=== PATIENT | female | born 1965 | race African-American/Black ===

== ENCOUNTER 2019-11-25 10:51 | Emergency (ER) | payer OTHER ==
[2019-11-25 11:00] VITALS: BP 164/91
[2019-11-25] MEDS ORDERED: TETANUS,DIPH,PERTUSS(ACELL) VACCINE 0.5 ML SYRINGE IM ONE (11:14)
--- NOTE | 2019-11-25 11:14 | Event Note ---
ED Screening Note ED Screening Note: fell out of the shower due to it being wet last night headache had small amount of bleeding no LOC no vomiting no vision changes no numbness or weakness unsure of last tetanus immunization This initial assessment/diagnostic orders/clinical plan/treatment(s) is/are subject to change based on patients health status, clinical progression and re- assessment by fellow clinical providers in the ED. Further treatment and workup at subsequent clinical providers discretion. Patient/guardian urged not to elope from the ED as their condition may be serious if not clinically assessed and managed. Initial orders include: CT head, XR neck
[2019-11-25] MEDS ORDERED: SODIUM CHLORIDE 0.9% IRR 1,000 ML BOTTLE IR ONE (12:24)
[2019-11-25] MEDS ORDERED: HYDROcodone/ACETAMINOPHEN 10-325MG TAB PO ONE (12:24)
[2019-11-25] MEDS ORDERED: SODIUM CHLORIDE IRRI 500 ML 1,000 ML IR ONE (12:29)
--- NOTE | 2019-11-25 12:50 | XRay Report ---
CERVICAL SPINE, 3 VIEWS INDICATION / CLINICAL INFORMATION: fall, hit head, neck pain. COMPARISON: None available. FINDINGS: Vertebral body heights are maintained. Alignment is normal. There is mild to moderate degenerative di sc disease involving C5-C6 and C6-C7. I do not see any evidence for cervical spine fracture. No soft tissue abnormality. Visualized lung apices are clear. IMPRESSION: Mild multilevel degenerative disc disease. No visible fracture or traumatic malalignment. Signer Name: Corrine Urbina MD Signed: 11/25/2019 12:46 PM Workstation Name: [id number]
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
--- NOTE | 2019-11-25 13:14 | Emergency Department Report ---
Head Injury w/o Laceration - HPI Chief Complaint: Head Injury Stated Complaint: HEAD INJURY Time Seen by Provider: 11/25/19 11:12 Occurred When: Yesterday Mechanism: Fall Location: Occipital Severity: mild Head Inj w/o Lac: Yes Headache, No Loss of Consciousness, No Nausea, No Blurred Vision, No Altered Mental Status, No Focal Deficit, No Swelling, No Bruising, No Break in Skin, No Bleeding Other History: This is a 54-year-old female nontoxic, well nourished in appearance, no acute signs of distress presents to the ED with c/o of right sided occipital scalp laceration status post fall that occurred last night while coming out of the shower. Patient denies any other injuries or pain. Denies any loss of consciousness. Patient denies decreased sensation or range of motion. Patient stated bleeding is under control. Denies any numbness, tingling, fever, chills, nausea, vomiting, chest pain, shortness of breath, or stiff neck. Patient denies any allergies to significant past medical history. Patient is that he is not up-to-date with tetanus. Family member is present during exam for translations purposes. ED General PMH - Social History Smoking Status: Never Smoker Head Injury W/O Lac Exam - Exam General: Vital signs noted. No distress. Alert and acting appropriately. Adult Head Front + Back: 1 - 1 cm lac 2 - 1 cm lac Head: Yes Pupils are PERRL, No Hemotympanum, No Hematoma/Ecchymosis, No Epista xis, No Stepoff/Deformity, No Laceration, No Abrasion Chest, Abd, & Ext: Yes Clear Lung Sounds, Yes Regular Heart Rhythm, No Neck Pain, No Chest Injury/Pain, No Heart Murmur, No Abdominal Tenderness, No Back Tenderness, No Extremity Injury Neuroligical (Head Inj W/O Lac: Yes Normal Speech, Yes Normal Gait, No Lethargy, No Disorientation, No Focal Numbness, No Focal Weakness - Laceration /Wound Repair Right Head Wound Location: head (right sided scalp area) Wound Length (cm): 1 Wound's Depth, Shape: superficial Wound Explored: clean Irrigated w/ Saline (ccs): 40 Betadine Prep?: Yes Number of Sutures: 2 (jd) Layer Closure?: No Sterile Dressing Applied?: Yes Progress: Under sterile field, I used Betadine to clean the area. I then used 40 mL of normal saline to flush the area. I then used a stapler with total of 2 jd placed. I then applied a sterile 4 x 4 with tape. Minimal bleeding noted but is under control. Patient tolerated procedure well with no signs of distress. ED Disposition Clinical Impression: Fall Qualifiers: Encounter type: initial encounter Qualified Code(s): W19.XXXA - Unspecified fall, initial encounter Laceration of head Qualifiers: Encounter type: initial encounter Location of open wound of head: scalp Foreign body presence: without foreign body Qualified Code(s): S01.01XA - Laceration without foreign body of scalp, initial encounter Disposition: TO HOME OR SELFCARE Is pt being admited?: No Does the pt Need Aspirin: No Condition: Stable Instructions: Laceration (ED), Staple Care (ED) Additional Instructions: Follow-up with a primary care doctor in 3-5 days or if symptoms worsen and continue return to emergency room as soon as possible. Return in 10 days for staple removal. Do not operate any machinery while taking Tylenol with codeine as this may cause drowsiness. Prescriptions: Sulfamethoxazole/Trimethoprim [Bactrim DS TAB] 1 each PO BID #14 tablet Acetaminophen/Codeine [Tylenol /Codeine # 3 tab] 1 tab PO Q6H PRN #12 tab PRN Reason: Pain , Severe (7-10) Referrals: PRIMARY CAREMD [Primary Care Provider] - 3-5 Days CHRISTELLE DELACRUZ MD [Staff Physician] - 3-5 Days [facility] [Outside] - 3-5 Days ED Medical Decision Making - Medical Decision Making This is a 54-year-old female that presents with laceration. Patient is stable and was examined by me. CT scan of head and x-ray of cervical spine has been obtained and dictated by radiologist unremarkable. Patient is notified of the CT and x-ray results with no questions noted by the patient. Patient tolerated well. A sterile dressing has been applied. Patient was educated on proper wound care. Patient is discharged with Bactrim. Patient was instructed to return in 10 days for staple removal. Patient was instructed to refer to Follow-up with a primary care doctor in 3-5 days or if symptoms worsen and continue return to emergency room as soon as possible. At time of discharge, the patient does not seem toxic or ill in appearance. No acute signs of distress noted. Patient agrees to discharge treatment plan of care. No further questions noted by the patient.
== END 2019-11-25 13:56 | disposition home or self-care (01) ==
LOC: ED 10:51
DX: S01.01XA Laceration without foreign body of scalp, initial encounter (principal); X58.XXXA Exposure to other specified factors, initial encounter; Y93.89 Activity, other specified; Y92.89 Other specified places as the place of occurrence of the external cause; Y99.8 Other external cause status
CPT/HCPCS: 70450; 72040; 90471; 90715